=== PATIENT | male | born 1995 | race Caucasian/White ===

== ENCOUNTER 2019-08-27 21:52 | Emergency (ER) | payer OTHER ==
[~2019-08-27] VITALS: Ht 175.3 cm; Wt 65.2 kg
[2019-08-27 22:57] LABS: INFLUENZA A AMPLIFICATION NEGATIVE (NEGATIVE); INFLUENZA B AMPLIFICATION NEGATIVE (NEGATIVE)
[2019-08-27] MEDS ORDERED: AUGM875T28 PO (23:58)
[2019-08-28] MEDS ORDERED: AUGMENTIN 875 MG TAB PO ONE
[2019-08-28 00:04] VITALS: BP 118/71
== END 2019-08-28 00:05 | disposition home or self-care (01) ==
LOC: M ED 21:52
DX: J02.0 Streptococcal pharyngitis (principal)